=== PATIENT | female | born 1975 ===

== ENCOUNTER 2018-03-26 17:56 | Emergency (ER) | payer SELFPAY ==
[2018-03-26 18:12] VITALS: O2SAT 100
[2018-03-26 18:37] LABS: BASO # 0.06 K/mm3 (0.0-2.0); BASO % 0.6 % (0.0-3.0); EOS # 0.2 (0.0-0.7); EOS % 2.3 % (1.5-5.0); GRAN # 4.21 (1.4-6.5); GRAN % 43.4 % (50.0-68.0); HEMOGLOBIN 11.6 g/dL (12.0-16.0); LYMPH # 4.6 (1.2-3.4); LYMPH % 47.7 % (22.0-35.0); MEAN CELL VOLUME 90.3 fl (80.0-105.0); MEAN CORPUSCULAR HEMOGLOBIN 31.1 pg (25.0-35.0); MEAN CORPUSCULAR HGB CONC 34.4 g/dl (31.0-37.0); MEAN PLATELET VOLUME 9.7 fl (7.0-11.0); MONO # 0.6 (0.1-0.6); RBC 3.73 10^6/uL (3.5-6.1); RED CELL DISTRIBUTION WIDTH 13.6 % (11.5-14.5); WHITE BLOOD COUNT 9.7 10^3/ul (4.5-11.0)
--- NOTE | 2018-03-26 18:38 | ED PDOC ---
Arrival/HPI - General Chief Complaint: Female Genitourinary Time Seen by Provider: 03/26/18 18:29 Historian: Patient, EMS - History of Present Illness Narrative History of Present Illness (Text): 03/26/18 18:34 A 42 year old female, whose past medical history includes sections x 2 , presents to the emergency department complaining of vaginal bleeding. bedside FAST scan shows to be negative. Patient currently experiencing active, heavy vaginal bleeding and was brought in immediately into the ER after becoming faint and diaphoretic. Past Medical History - Provider Review Nursing Documentation Reviewed: Yes - Psychiatric Hx Psychophysiologic Disorder: No Hx Substance Use: No - Surgical History Hx Section: Yes (x2) - Anesthesia Hx Anesthesia: No Family/Social History - Physician Review Nursing Documentation Reviewed: Yes Family/Social History: No Known Family HX Smoking Status: Never Smoked Hx Alcohol Use: Yes Frequency of alcohol use: Socially Hx Substance Use: No Allergies/Home Meds Allergies/Adverse Reactions: Allergies No Known Allergies Allergy (Verified 08/21/15 23:43) Home Medications: Home Meds Medication Instructions Recorded Confirmed No Known Home Med 03/26/18 03/26/18 Review of Systems - Physician Review All systems were reviewed & negative as marked: Yes - Review of Systems Respiratory: absent: SOB Cardiovascular: absent: Chest Pain Gastrointestinal: absent: Abdominal Pain, Nausea, Vomiting Genitourinary Female: Vaginal Bleeding (heavy). absent: Dysuria Endocrine: Diaphoresis Physical Exam - Physical Exam Narrative Physical Exam (Text): Gen: VS reviewed, alert, well developed, well nourished, nontoxic, moderate distress. ENT: normal pharynx Eye: EOMI, PERRL Neck: no JVD, supple, no adenopathy CV: regular rate, regular rhythm, no rubs, no murmur, no gallops, S1, S2, pulses , equal and strong Pulm: no distress, clear to auscultation, no wheeze, no rhonchi, breath sounds equal, no rales Abd: soft, nontender, no guarding, no rebound, no rigidity, normal bowel sounds Ext: no edema Skin: pale color, clammy, no rash, no cyanosis Psych: responds appropriately to questions, normal affect Neuro: oriented x 3, CN2-12 intact grossly, motor intact, sensation intact Pelvic: perfuse, active vaginal hemorrhaging Vital Signs Reviewed: Yes Vital Signs Temp Pulse Resp BP Pulse Ox 03/26/18 19:12 98 F 77 18 108/62 03/26/18 18:54 98.2 F 92 H 18 142/52 L 03/26/18 18:52 92 H 18 140/52 L 100 03/26/18 17:59 98.2 F 107 H 18 88/55 L 100 Temperature: Afebrile Blood Pressure: Hypotensive Pulse: Regular Respiratory Rate: Normal Appearance: Positive for: Well-Appearing, Non-Toxic, Comfortable Pain Distress: Moderate Mental Status: Positive for: Alert and Oriented X 3 Medical Decision Making ED Course and Treatment: 03/26/18 18:37 Impression: 42 year old female with heavy active vaginal bleeding. Pelvic exam shows perfuse, active vaginal hemorrhaging. Plan: -- Urinalysis -- Labs -- POC Urine Test -- Urinary Catheter -- Reassess and disposition Progress Notes: 03/26/18 18:[address] Starr, who states for surgical, to transfer patient to [facility] and to call back immediately when CBC and test results come back. 03/26/18 18:49 discussed with blood bank to release o neg blood and they have requested someone retrieve blood Case discussed with Dr. Starr, who requests for patient to be transfered to [facility] department. 03/26/18 19:[address] Steinberg, ER attending at [facility], who receives reports fro ER-to-ER transfer. 03/26/18 19:20 patient was seen for heavy acute vaginal bleeding with initial shock presentation. blood pressure responded well to ivf. patient found to have heavy and persistent vaginal bleeding (amenorrhea since sep 2017) and the decision was made to give uncossmatched blood due to hemorrhagic shock. 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 - Critical Care Critical Care Minutes: 60 minutes Narrative Critical Care (Text): 03/26/18 19:24 critical care for critical illness and multiple interventions pertaining to critical illness - Lab Interpretations Lab Results: 03/26/18 18:15 03/26/18 18:15 Lab Results 03/26/18 18:31: Blood Type Pending, Antibody Screen Pending, Crossmatch See Detail, BBK History Checked Pending 03/26/18 18:15: Blood Type Pending, Antibody Screen Pending, Crossmatch See Detail, BBK History Checked No verified bt 03/26/18 18:15: Beta HCG, Quant 42.11 H 03/26/18 18:15: Sodium 140, Potassium 3.6, Chloride 105, Carbon Dioxide 24, Anion Gap 14, BUN 8, Creatinine 0.6 L, Est GFR ( Amer) > 60, Est GFR (Non -Af Amer) > 60, Random Glucose 132 H, Calcium 9.0, Total Bilirubin 0.5, AST 28, ALT 26, Alkaline Phosphatase 62, Total Protein 6.8, Albumin 3.9, Globulin 2.9, Albumin/Globulin Ratio 1.3 03/26/18 18:15: PT 13.0 H, INR 1.14 H, APTT 24.4 L 03/26/18 18:15: WBC 9.7 D, RBC 3.73, Hgb 11.6 L, Hct 33.7 L, MCV 90.3, MCH 31.1 , MCHC 34.4, RDW 13.6, Plt Count 252, MPV 9.7, Gran % 43.4 L, Lymph % (Auto) 47.7 H, [place] % (Auto) 6.0, Eos % (Auto) 2.3, Baso % (Auto) 0.6, Gran # 4.21, Lymph # (Auto) 4.6 H, [place] # (Auto) 0.6, Eos # (Auto) 0.2, Baso # (Auto) 0.06 - Scribe Statement The provider has reviewed the documentation as recorded by the Moses Linder Provider Scribe Attestation: All medical record entries made by the Moses were at my direction and personally dictated by me. I have reviewed the chart and agree that the record accurately reflects my personal performance of the history, physical exam, medical decision making, and the department course for this patient. I have also personally directed, reviewed, and agree with the discharge instructions and disposition. Disposition/Present on Arrival - Present on Arrival Any Indicators Present on Arrival: No History of DVT/PE: No History of Uncontrolled Diabetes: No Urinary Catheter: No History of Decub. Ulcer: No History Surgical Site Infection Following: None - Disposition Have Diagnosis and Disposition been Completed?: Yes Diagnosis: Hemorrhagic shock, Abnormal vaginal bleeding Disposition: Transfer [facility] Disposition Time: 18:59 Patient Plan: Transfer To Condition: [facility] Forms: Wanova (Maldivian)
[2018-03-26 18:43] LABS: INR 1.14 (0.93-1.08); PARTIAL THROMBOPLASTIN TIME 24.4 Seconds (25.1-36.5)
[2018-03-26 18:45] LABS: ALB/GLOB RATIO 1.3 (1.1-1.8); ALBUMIN 3.9 g/dL (3.0-4.8); ALT/SGPT 26 U/L (7-56); AST/SGOT 28 U/L (14-36); BLOOD UREA NITROGEN 8 mg/dL (7-21); GFR AFRICAN-AMERICAN > 60; GFR NON-AFRICAN AMERICAN > 60
[2018-03-26 19:40] VITALS: BP 98/61; PULSE 75; RESP 19; TEMP 98.4
== END 2018-03-26 19:38 | disposition short-term general hospital (02) ==
LOC: ED 17:56
DX: R57.8 Other shock (principal); N93.9 Abnormal uterine and vaginal bleeding, unspecified
CPT/HCPCS: 36430; 80053; 84702; 85025; 85610; 85730; 86850; 86900; 86920; 99291; J7030; P9016